=== PATIENT | male | born 1995 | race Caucasian/White ===

== ENCOUNTER 2017-01-19 20:51 | Emergency (ER) | payer BC ==
[~2017-01-19] VITALS: Ht 172.7 cm; Wt 68.0 kg
[2017-01-19 23:27] VITALS: BP 128/64
[2017-01-19] MEDS ORDERED: AUGMENTIN 875875 MG PO (23:27)
== END 2017-01-19 23:27 | disposition home or self-care (01) ==
LOC: ER 20:51
DX: S50.812A Abrasion of left forearm, initial encounter (principal); W54.0XXA Bitten by dog, initial encounter; Y93.89 Activity, other specified; Y92.89 Other specified places as the place of occurrence of the external cause; Y99.8 Other external cause status

== ENCOUNTER 2020-08-16 14:01 | Emergency (ER) | payer OTHER ==
[~2020-08-16] VITALS: Ht 177.8 cm; Wt 81.7 kg
[~2020-08-16 14:01] MED LIST: AUGMENTIN 875875 MG PO
[2020-08-16 17:53] VITALS: BP 128/72
== END 2020-08-16 17:53 | disposition home or self-care (01) ==
LOC: ER 14:01
DX: S61.011A Laceration without foreign body of right thumb without damage to nail, initial encounter (principal); Z79.2 Long term (current) use of antibiotics; W29.3XXA Contact with powered garden and outdoor hand tools and machinery, initial encounter; Y93.89 Activity, other specified; Y92.89 Other specified places as the place of occurrence of the external cause; Y99.8 Other external cause status